=== PATIENT | male | born 1965 | race Caucasian/White ===

== ENCOUNTER 2017-12-24 17:12 | Emergency (ER) | payer MEDICAID, OTHER | END 2017-12-24 17:50 | disposition home or self-care (01) | LOC: ER 17:12 | DX: J40 Bronchitis, not specified as acute or chronic (principal); F17.200 Nicotine dependence, unspecified, uncomplicated; F12.10 Cannabis abuse, uncomplicated; F15.10 Other stimulant abuse, uncomplicated; I25.10 Atherosclerotic heart disease of native coronary artery without angina pectoris | CPT/HCPCS: 99283 ==

== ENCOUNTER 2020-04-23 21:05 | Emergency (ER) | payer OTHER ==
[~2020-04-23] VITALS: Ht 162.6 cm; Wt 60.0 kg
[~2020-04-23 21:05] MED LIST: ALBU2.5V8 INH; ASPI-482 PO; ATOR20TA PO; AZIT1PAC PO; FURO-68 PO; LISI-338 PO; METO25TA4 PO; PRED50TA PO; SPIR25TA PO
[2020-04-23 21:23] VITALS: BP 119/75
[2020-04-23] MEDS ORDERED: AZITHROMYCIN 250 MG TABLET. PO ONE (22:00)
[2020-04-23] MEDS ORDERED: metroNIDAZOLE 500 MG TABLET PO ONE (22:00)
[2020-04-23] MEDS ORDERED: cefTRIAXone IM 250 MG VIAL IM ONE (22:00)
--- NOTE | 2020-04-23 22:12 | PHYS DOC ---
Past Medical History Past Medical History: CAD, Other Additional Past Medical Histor: congenital heart disease Past Surgical History: Other Additional Past Surgical Histo: Open-heart surgery with valve repair 5 years ago [facility] Smoking Status: Current Every Day Smoker Alcohol Use: None Drug Use: Amphetamine, Marijuana General Adult EDM: Chief Complaint: SEXUALLY TRANSMITTED DISEASE HPI: HPI: 54-year-old male presents with no real symptoms but states that the girlfriend that he presents here with tonight that he is sexually active with has recently been diagnosed with gonorrhea, chlamydia and trichomonas and he is wondering if he can be treated. [] Review of Systems: Review of Systems: Constitutional: Denies fever or chills. [] Eyes: Denies change in visual acuity. [] HENT: Denies nasal congestion or sore throat. [] Respiratory: Denies cough or shortness of breath. [] Cardiovascular: Denies chest pain or edema. [] GI: Denies abdominal pain, nausea, vomiting, bloody stools or diarrhea. [] : D uncircumcised. [] Musculoskeletal: Denies back pain or joint pain. [] Integument: Denies rash. [] Neurologic: Denies headache, focal weakness or sensory changes. [] Endocrine: Denies polyuria or polydipsia. [] Lymphatic: Denies swollen glands. [] Psychiatric: Denies depression or anxiety. [] Heart Score: Risk Factors: Risk Factors: DM, Current or recent (<one month) smoker, HTN, HLP, family history of CAD, obesity. Risk Scores: Score 0 - 3: 2.5% MACE over next 6 weeks - Discharge Home Score 4 - 6: 20.3% MACE over next 6 weeks - Admit for Clinical Observation Score 7 - 10: 72.7% MACE over next 6 weeks - Early Invasive Strategies Current Medications: Current Medications Medications (Trade) Dose Ordered Sig/Ck Start Time Stop Time Status Last Admin Dose Admin Azithromycin (Zithromax) 1,000 mg 1X ONCE 04/23/20 22:00 04/23/20 22:01 DC Ceftriaxone Sodium (Rocephin Im) 250 mg 1X ONCE 04/23/20 22:00 04/23/20 22:01 DC Metronidazole (Flagyl) 2,000 mg 1X ONCE 04/23/20 22:00 04/23/20 22:01 DC Allergies: Allergies: Allergies Coded Allergies Type Severity Reaction Last Updated Verified No Known Drug Allergies 08/03/17 No Physical Exam: PE: Constitutional: Well developed, well nourished, no acute distress, non-toxic appearance. [] HENT: Normocephalic, atraumatic, bilateral external ears normal, oropharynx moist, no oral exudates, nose normal. [] Eyes: PERRLA, EOMI, conjunctiva normal, no discharge. [] Neck: Normal range of motion, no tenderness, supple, no stridor. [] Cardiovascular:Heart rate regular rhythm, no murmur [] Lungs & Thorax: Bilateral breath sounds clear to auscultation [] Abdomen: Bowel sounds normal, soft, no tenderness, no masses, no pulsatile masses. [] Skin: Warm, dry, no erythema, no rash. [] Back: No tenderness, no CVA tenderness. [] Extremities: No tenderness, no cyanosis, no clubbing, ROM intact, no edema. [] Neurologic: Alert and oriented X 3, normal motor function, normal sensory function, no focal deficits noted. [] Psychologic: Affect normal, judgement normal, mood normal. [] EKG: EKG: [] Radiology/Procedures: Radiology/Procedures: [] Course & Med Decision Making: Course & Med Decision Making Pertinent Labs and Imaging studies reviewed. (See chart for details) [] Dragon Disclaimer: Dragon Disclaimer: This electronic medical record was generated, in whole or in part, using a voice recognition dictation system. Departure Departure Impression: Primary Impression: Sexually transmitted disease (STD) Disposition: HOME, SELF-CARE Condition: STABLE Referrals: NO PCP (PCP) Patient Instructions: Sexually Transmitted Disease, [id number] Additional Instructions: You have been treated for gonorrhea, chlamydia and trichomonas EMELY ANTON DO April 23, 2020 22:12
== END 2020-04-23 22:28 | disposition home or self-care (01) ==
LOC: ER 21:05
DX: A64 Unspecified sexually transmitted disease (principal); F17.200 Nicotine dependence, unspecified, uncomplicated; I25.10 Atherosclerotic heart disease of native coronary artery without angina pectoris
CPT/HCPCS: 96372; 99283; J0696